=== PATIENT | male | born 1990 ===

== ENCOUNTER 2024-02-19 13:17 | Emergency (ER) | payer MEDICAID, OTHER ==
[~2024-02-19] VITALS: Ht 188 cm; Wt 139.0 kg
[2024-02-19 13:28] VITALS: O2SAT 98
[2024-02-19 14:28] LABS: BASOPHILS % 0.8 % (0.0-2.0); HEMATOCRIT. 43.8 % (42.0-52.0); HEMOGLOBIN. 15.1 g/dL (14.0-18.0); LYMPHOCYTES % 26.5 % (20.0-50.0); MEAN CORPUSCULAR HEMOGLOBIN 27.6 pg (28.0-32.0); MEAN CORPUSCULAR HGB CONC 34.4 g/dL (31.0-37.0); MEAN CORPUSCULAR VOLUME 80.1 fL (80.0-94.0); MEAN PLATELET VOLUME 9.9 fl (7.4-10.4); MONOCYTES % 10.6 % (2.0-8.0); NEUTROPHILS % 59.1 % (40.0-76.0); PLATELET 229 x1000/uL (130-400); RED BLOOD CELL COUNT 5.46 mill/uL (4.7-6.1); RED CELL DISTRIBUTION WIDTH 13.9 % (11.6-14.6); WHITE BLOOD COUNT 8.8 x1000/uL (4.5-11.0)
[2024-02-19 14:37] LABS: CHLORIDE 102 mEq/L (98-107); SODIUM 135 mEq/L (136-145)
[2024-02-19 14:38] LABS: CARBON DIOXIDE 28 mEq/L (21-32)
[2024-02-19 14:39] LABS: CALCIUM 9.5 mg/dL (8.7-10.4)
[2024-02-19 14:44] LABS: CREATININE 0.9 mg/dL (0.6-1.3); GLUCOSE 241 mg/dL (70-105); UREA NITROGEN BLOOD 22 mg/dL (9-23)
[2024-02-19 17:24] VITALS: BP 165/88; PULSE 90; RESP 17; TEMP 97.6
== END 2024-02-19 17:30 | disposition home or self-care (01) ==
LOC: ER 13:17
DX: A52.16 Charcot's arthropathy (tabetic) (principal); E11.9 Type 2 diabetes mellitus without complications; I10 Essential (primary) hypertension
CPT/HCPCS: 36415; 80048; 85025; 99283